=== PATIENT | male | born 1940 | race Caucasian/White ===

== ENCOUNTER 2016-06-28 08:01 | Day surgery (SDC) | payer MEDICAID, MEDICARE, OTHER ==
[~2016-06-28] VITALS: Ht 167.6 cm; Wt 107.2 kg
[~2016-06-28 08:01] MED LIST: ACET-66 PO; ASPI-1093 PO; ATOR20TA86 PO; BENA20 PO; BESIFLOXACIN HCL 0.6% 5 ML OPHTHALMIC SUSPENSION OS ONE; CARV3 PO; CILO2.5OS OS; DICL1OS OS; DICLOFENAC SODIUM 0.1% 2.5 ML OPHTHALMIC SOLUTION OS ONE; FINA5TAB41 PO; GUAI120L62 PO; HYDR50 PO; HYPR15DR23 OU; INSLAN SQ; KDUR10 PO; LEVO125 PO; METF500T4 PO; MIRAUD PO; MOM30 PO; NYST30PO11 TP; PARO10TA89 PO; PREDAOS OS; RINGERS SOLUTION,LACTATED 500 ML IV ONE; SELE120S2 TP; SENN-30 PO; TAMS0.4C32 PO; [UNRECOGNIZED DRUG - CODE] PO
[2016-06-28] MEDS ORDERED: TROPICAMIDE 1% 2 ML OPHTHALMIC SOLUTION ONE (08:26)
[2016-06-28] MEDS ORDERED: RINGERS SOLUTION,LACTATED 500 ML IV ONE (08:26)
[2016-06-28] MEDS ORDERED: BESIFLOXACIN HCL 0.6% 5 ML OPHTHALMIC SUSPENSION ONE (08:26)
[2016-06-28] MEDS ORDERED: PHENYLEPHRINE HCL 2.5% 2 ML OPHTHALMIC SOLUTION ONE (08:26)
[2016-06-28] MEDS ORDERED: DICLOFENAC SODIUM 0.1% 2.5 ML OPHTHALMIC SOLUTION ONE (08:26)
[2016-06-28 09:16] LABS: GLUCOSE,POINT OF CARE 68 MG/DL (70-110)
[2016-06-28] MEDS: PHENYLEPHRINE HCL 2.5% 2 ML OPHTHALMIC SOLUTION OS SCH ×2 (09:24→09:29)
[2016-06-28] MEDS: TROPICAMIDE 1% 2 ML OPHTHALMIC SOLUTION OS SCH ×2 (09:24→09:29)
[2016-06-28] MEDS ORDERED: DEXTROSE 10%-WATER 250 ML IV ONE (09:45)
[2016-06-28] MEDS ORDERED: DEXTROSE 10%-WATER 500 ML IV ONE (10:00)
[2016-06-28] MEDS ORDERED: ALBUTEROL SULFATE 2.5 MG/0.5 ML NEB SOLUTION NEB ONE ×2 (10:30→10:45)
[2016-06-28 10:41] LABS: GLUCOSE,POINT OF CARE 95 MG/DL (70-110)
[2016-06-28] MEDS ORDERED: 0.9% SODIUM CHLORIDE 5 ML NEB SOLUTION NEB ONE (10:46)
[2016-06-28 11:36] LABS: GLUCOSE,POINT OF CARE 114 MG/DL (70-110)
[2016-06-28] MEDS ORDERED: FentaNYL CITRATE-PF 100 MCG/2 ML VIAL IVP ONE (12:00)
[2016-06-28] MEDS ORDERED: MIDAZOLAM HCL 2 MG/2 ML VIAL IVP ONE (12:00)
[2016-06-28] MEDS ORDERED: HYALURONATE SODIUM 12 MG/ML 0.8 ML SYRINGE IO ONE (16:47)
[2016-06-28] MEDS ORDERED: DEXAMETHASONE SOD PHOS 4 MG/ML VIAL IVP ONE (16:47)
[2016-06-28] MEDS ORDERED: TETRACAINE HCL VISCOUS 0.5% 0.6 ML OPHTHALMIC SOLUTION OS ONE (16:47)
[2016-06-28] MEDS ORDERED: HYALURONATE SOD/CHONDROITIN SOD 0.5 ML VIAL IO ONE (16:47)
[2016-06-28] MEDS ORDERED: LIDOCAINE HCL/PF 1% 2 ML VIAL IM ONE (16:47)
[2016-06-28] MEDS ORDERED: POVIDONE-IODINE 10% 15 ML SOLUTION UD TP ONE (16:47)
== END 2016-06-28 13:10 | disposition home or self-care (01) ==
LOC: SURGERY 08:01
PROVIDERS: ATTEND Specialist
DX: H25.012 Cortical age-related cataract, left eye (principal); E11.36 Type 2 diabetes mellitus with diabetic cataract; I10 Essential (primary) hypertension; I69.322 Dysarthria following cerebral infarction; I69.354 Hemiplegia and hemiparesis following cerebral infarction affecting left non-dominant side; I48.91 Unspecified atrial fibrillation; E03.9 Hypothyroidism, unspecified; K21.9 Gastro-esophageal reflux disease without esophagitis; E78.5 Hyperlipidemia, unspecified; F32.9 Major depressive disorder, single episode, unspecified; I50.9 Heart failure, unspecified; I51.7 Cardiomegaly; E66.01 Morbid (severe) obesity due to excess calories; M54.9 Dorsalgia, unspecified; Z79.4 Long term (current) use of insulin; Z98.890 Other specified postprocedural states
CPT/HCPCS: 66984; 82962; 93005; 94640; C1780; J1100; J2250; J3010; J3490 ×2; J7120

== ENCOUNTER 2016-07-26 05:50 | Day surgery (SDC) | payer MEDICAID, OTHER ==
[~2016-07-26] VITALS: Ht 170.2 cm; Wt 104.1 kg
[~2016-07-26 05:50] MED LIST changes: +BESIFLOXACIN HCL 0.6% 5 ML OPHTHALMIC SUSPENSION ONE; -BESIFLOXACIN HCL 0.6% 5 ML OPHTHALMIC SUSPENSION OS ONE; +DICLOFENAC SODIUM 0.1% 2.5 ML OPHTHALMIC SOLUTION ONE; -DICLOFENAC SODIUM 0.1% 2.5 ML OPHTHALMIC SOLUTION OS ONE; +PHENYLEPHRINE HCL 2.5% 2 ML OPHTHALMIC SOLUTION ONE; +TROPICAMIDE 1% 2 ML OPHTHALMIC SOLUTION ONE
[2016-07-26] MEDS ORDERED: RINGERS SOLUTION,LACTATED 500 ML IV ONE (06:00)
[2016-07-26] MEDS ORDERED: PHENYLEPHRINE HCL 2.5% 2 ML OPHTHALMIC SOLUTION OD SCH (06:00)
[2016-07-26] MEDS ORDERED: TROPICAMIDE 1% 2 ML OPHTHALMIC SOLUTION OD SCH (06:00)
[2016-07-26] MEDS ORDERED: DICLOFENAC SODIUM 0.1% 2.5 ML OPHTHALMIC SOLUTION OD ONE (06:00)
[2016-07-26] MEDS ORDERED: BESIFLOXACIN HCL 0.6% 5 ML OPHTHALMIC SUSPENSION OD ONE (06:00)
[2016-07-26 06:51] LABS: GLUCOSE,POINT OF CARE 162 MG/DL (70-110)
[2016-07-26] MEDS ORDERED: TETRACAINE HCL 0.5% 2 ML OPHTHALMIC SOLUTION OU ONE (10:00)
[2016-07-26] MEDS ORDERED: LABETALOL HCL 5 MG/ML 20 ML VIAL IVP ONE (10:00)
[2016-07-26] MEDS ORDERED: LIDOCAINE HCL/PF 1% 2 ML VIAL INJ ONE (10:00)
[2016-07-26] MEDS ORDERED: DEXAMETHASONE SOD PHOS 4 MG/ML VIAL IVP ONE (10:00)
[2016-07-26] MEDS ORDERED: POVIDONE-IODINE 10% 15 ML SOLUTION UD TP ONE (10:00)
[2016-07-26] MEDS ORDERED: HYALURONATE SODIUM 12 MG/ML 0.8 ML SYRINGE IO ONE (10:00)
[2016-07-26] MEDS ORDERED: HYALURONATE SOD/CHONDROITIN SOD 0.5 ML VIAL IO ONE (10:00)
[2016-07-26] MEDS ORDERED: MIDAZOLAM HCL 2 MG/2 ML VIAL IVP ONE (12:00)
[2016-07-26] MEDS ORDERED: FentaNYL CITRATE-PF 100 MCG/2 ML VIAL IVP ONE (12:00)
== END 2016-07-26 10:10 | disposition home or self-care (01) ==
LOC: SURGERY 05:50
PROVIDERS: ATTEND Specialist
DX: E10.36 Type 1 diabetes mellitus with diabetic cataract (principal); H25.011 Cortical age-related cataract, right eye; I10 Essential (primary) hypertension; I69.954 Hemiplegia and hemiparesis following unspecified cerebrovascular disease affecting left non-dominant side; I48.91 Unspecified atrial fibrillation; I45.10 Unspecified right bundle-branch block; E66.9 Obesity, unspecified; Z79.4 Long term (current) use of insulin; Z98.42 Cataract extraction status, left eye; Z98.890 Other specified postprocedural states
CPT/HCPCS: 66984; 82962; 93005; C1780; J3490; J7120; J1100; J2250; J3010